=== PATIENT | female | born 1985 | race Two or more races ===

== ENCOUNTER 2025-01-25 17:36 | Emergency (ER) | payer BC, SELFPAY ==
[2025-01-25 17:44] VITALS: BP 134/90; PULSE 82; TEMP 36.9; O2SAT 98; BMI 30.2
--- NOTE | 2025-01-25 18:11 | ED.GENADUL1 ---
HPI HPI - General Adult General Chief complaint: Wound/Laceration Stated complaint: POST SURGERY COMPLICATIONS Time Seen by Provider: 01/25/25 17:52 Source: patient Mode of arrival: Wheelchair Limitations: no limitations History of Present Illness HPI narrative: 39-year-old female presents to the emergency department with concerns of her abdominal surgical wound. On January 08 she had abdominoplasty in the [place] area. She has been [id number] 3 times since then. 5 days ago she saw her surgeon who the patient states performed the following procedure. She states that he did awake anesthesia in his office and opened her up to look for any foreign bodies and did not find any. She has had some bleeding. No fever or vomiting. Related Data Previous Rx's ?Medication ?Instructions ?Recorded cephalexin 500 mg capsule 500 mg PO TID 10 days #30 caps 01/25/25 Allergies Allergy/AdvReac Type Severity Reaction Status Date / Time No Known Drug Allergies Allergy Verified 01/25/25 17:48 Opioid HPI Opioid Management Most Recent Opioid Data: No Data to Display Review of Systems ROS Narrative A ten point review of systems is negative except as noted above. PFSH PFSH Social History Little interest or pleasure in doing things: not at all Feeling down, depressed, or hopeless: not at all Exam Narrative Exam Narrative: Nurses note and vital signs reviewed and patient is not hypoxic. General: The patient appears in no apparent distress. Skin: Warm, dry, no pallor noted. There is no rash noted. Head: Normocephalic, atraumatic Eye: Normal conjunctiva, no drainage Ears, Nose, Mouth, and Throat: oral mucosa is moist. Nares patent. Cardiovascular: Regular Rate and Rhythm Respiratory: Patient is in no distress, no accessory muscle use, lungs are clear to auscultation, no wheezing, rales or rhonchi GI: SIRS: Is present. The central portion of it is held with Steri-Strips. There is minimal bleeding from the central portion of it. No purulent drainage or surrounding erythema. Musculoskeletal: The patient has no evidence of calf tenderness, no pitting edema, symmetrical pulses noted bilaterally Neurological: A&O, normal speech Psychiatric: Cooperative Constitutional Vital Signs, click to edit/add: Last Vital Signs Temp 98.5 F 01/25/25 17:44 Pulse 82 01/25/25 17:44 Resp 18 01/25/25 17:44 BP 134/90 01/25/25 17:44 Pulse Ox 98 01/25/25 17:44 O2 Del Method Room Air 01/25/25 17:44 Course Vital Signs Vital signs: Vital Signs Temperature 98.5 F 01/25/25 17:44 Pulse Rate 82 01/25/25 17:44 Respiratory Rate 18 01/25/25 17:44 Blood Pressure 134/90 01/25/25 17:44 Pulse Oximetry 98 01/25/25 17:44 Oxygen Delivery Method Room Air 01/25/25 17:44 Temperature 98.5 F 01/25/25 17:44 Pulse Rate 82 01/25/25 17:44 Respiratory Rate 18 01/25/25 17:44 Blood Pressure 134/90 01/25/25 17:44 Pulse Oximetry 98 01/25/25 17:44 Oxygen Delivery Method Room Air 01/25/25 17:44 Medical Decision Making MDM Narrative Medical decision making narrative: WBC is normal. She has already been explored for foreign body and it was explained to her that rubber would not show up on an x-ray or a CAT scan. She is prescribed Keflex and was encouraged prompt follow-up with her surgeon in [place]. Treatment diagnosis and follow-up were discussed with the patient. I do not see evidence of an active infection Differential Diagnosis Differential Diagnosis: Wound check, seroma, cellulitis, abscess Lab Data Lab results reviewed: Yes I reviewed the patient's lab results Labs: Lab Results 01/25/25 Range/Units 18:10 WBC 7.8 (4.0-11.0) 10^3/uL RBC 3.94 L (4.20-5.40) 10^6/uL Hgb 11.5 L (12.0-16.0) g/dL Hct 34.3 L (36.0-48.0) % MCV 87.1 (81.0-99.0) fL MCH 29.2 (26.7-34.0) pg MCHC 33.5 (29.9-35.2) g/dL RDW 12.2 (11.0-15.0) % Plt Count 464 H (150-450) 10^3/uL MPV 8.5 L (9.5-13.5) fL Neut % (Auto) 57.9 (43.0-75.0) % Lymph % (Auto) 29.4 (20.5-60.0) % [place] % (Auto) 8.9 (1.7-12.0) % Eos % (Auto) 2.5 (0.9-7.0) % Baso % (Auto) 0.8 (0.2-2.0) % Neut # (Auto) 4.5 (1.4-6.5) 10^3/uL Lymph # (Auto) 2.3 (1.2-3.8) 10^3/uL [place]ether # (Auto) 0.7 (0.3-0.8) 10^3/uL Eos # (Auto) 0.2 (0.0-0.7) 10^3/uL Baso # (Auto) 0.1 (0.0-0.1) 10^3/uL Abs Immat Gran (auto) 0.04 H (0.00-0.03) 10^3/uL Imm/Tot Granulo (auto) 0.5 (0.0-0.5) % Discharge Plan Discharge Chief Complaint: Wound/Laceration Clinical Impression: Visit for wound check Patient Disposition: Home, Self-Care Time of Disposition Decision: 18:36 Condition: Good Mode of Transportation: Private Vehicle Prescriptions / Home Meds: New cephalexin 500 mg capsule 500 mg PO TID 10 Days Qty: 30 0RF Print Language: Israeli Instructions: Wound Healing and Your Diet (ED) Referrals: JAQUI RAJPUT [Primary Care Provider] - 1 week
[2025-01-25 18:22] LABS: Basophils Absolute Auto 0.1 10^3/uL (0.0-0.1); Basophils Percent Auto 0.8 % (0.2-2.0); Eosinophils Absolute Auto 0.2 10^3/uL (0.0-0.7); Eosinophils Percent Auto 2.5 % (0.9-7.0); Hematocrit 34.3 % (36.0-48.0); Hemoglobin 11.5 g/dL (12.0-16.0); Immature Granulocytes Abs Auto 0.04 10^3/uL (0.00-0.03); Immature Granulocytes Pct Auto 0.5 % (0.0-0.5); Lymphocytes Absolute Auto 2.3 10^3/uL (1.2-3.8); Lymphocytes Percent Auto 29.4 % (20.5-60.0); Mean Corpuscular HGB Conc 33.5 g/dL (29.9-35.2); Mean Corpuscular Hemoglobin 29.2 pg (26.7-34.0); Mean Corpuscular Volume 87.1 fL (81.0-99.0); Mean Platelet Volume 8.5 fL (9.5-13.5); Monocytes Absolute Auto 0.7 10^3/uL (0.3-0.8); Monocytes Percent Auto 8.9 % (1.7-12.0); Neutrophils Absolute Auto 4.5 10^3/uL (1.4-6.5); Neutrophils Percent Auto 57.9 % (43.0-75.0); Platelet Count 464 10^3/uL (150-450); Red Blood Count 3.94 10^6/uL (4.20-5.40); Red Cell Distribution Width 12.2 % (11.0-15.0); White Blood Count 7.8 10^3/uL (4.0-11.0)
[2025-01-25 18:31] LABS: Anion Gap 13.5; BUN Creatinine Ratio 18.1; Calcium 9.3 mg/dL (8.5-10.1); Carbon Dioxide 28.6 mmol/L (21.0-32.0); Chloride 101 mmol/L (98-107); Estimated GFR (African America >60 (>=60 mL/min/1.73m^2); Estimated GFR (Non-African Ame >60 (>=60 mL/min/1.73m^2); Glucose 104 mg/dL (74-106); Potassium 4.1 mmol/L (3.5-5.1); Sodium 139 mmol/L (136-145)
== END 2025-01-25 18:55 | disposition home or self-care (01) ==
PROVIDERS: Emergency Provider Emergency Medicine
DX: Z48.89 Encounter for other specified surgical aftercare (principal)
CPT/HCPCS: 36415; 80048; 85025; 99283